=== PATIENT | female | born 1995 | race Caucasian/White ===

== ENCOUNTER 2017-01-03 10:14 | Emergency (ER) | payer BC ==
--- NOTE | 2017-01-03 10:34 | EDPHY ---
H & P Stated Complaint: cough, sore throat, weak legs Time Seen by Provider: 01/03/17 10:25 HPI/ROS: CHIEF COMPLAINT: Cough, myalgias HISTORY OF PRESENT ILLNESS: The patient presents to the ED with complaints of cough and myalgias for the past 6 days. The patient reports a 2 day history of fever an interval development of a severe cough and myalgias. The patient does complain of bilateral lower extremity leg weakness secondary to pain. The patient denies abdominal pain, nausea, vomiting or diarrhea. The patient reports she has a remote history of errlichiosis and mild Lyme disease. The patient denies any recent travel to the [facility]. She was camping the [facility] last week. The patient denies history of insect bite or tick bite recently. REVIEW OF SYSTEMS: A comprehensive 10 point review of systems is otherwise negative aside from elements mentioned in the history of present illness. 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 - Social History Smoking Status: Former smoker - Physical Exam Exam: General Appearance: Alert, no distress Eyes: Pupils equal and round no pallor or injection ENT, Mouth: Minimal pharyngeal erythema Respiratory: There are no retractions, lungs are clear to auscultation Cardiovascular: Regular rate and rhythm Gastrointestinal: Abdomen is soft and nontender, no masses, bowel sounds normal Neurological: A&O, normal motor function, normal sensory exam, normal cranial nerves Skin: Warm and dry, no rashes Musculoskeletal: Neck is supple nontender Extremities: symmetrical, full range of motion Constitutional: Initial Vital Signs Temperature (C) 37.0 C 01/03/17 10:18 Heart Rate 93 01/03/17 10:18 Respiratory Rate 18 01/03/17 10:18 Blood Pressure 120/84 H 01/03/17 10:18 O2 Sat (%) 95 01/03/17 10:18 O2 Delivery Mode Room Air Allergies/Adverse Reactions: No Known Allergies Allergy (Verified 01/03/17 10:17) Home Medications: Medication Instructions Recorded Bcp 05/30/15 AZITHROMYCIN [Z-PACK] 250 mg PO DAILY #1 packet 01/03/17 Albuterol [Ventolin Hfa Inhaler] 2 puffs IH QID PRN #1 mdi 01/03/17 Medical Decision Making ED Course/Re-evaluation: The patient presents to the ED with a one-week history of cough, myalgias and fever. The patient is well-appearing with stable vital signs. Given her complaints of leg pain and myalgias a CPK has been ordered. Patient has no clinical evidence of pneumonia. The patient's laboratory studies demonstrated a negative rapid flu test. The patient's CBC is within normal limits. The patient has no clinical evidence of rhabdomyolysis or significant metabolic abnormality. The patient will be treated with azithromycin and albuterol for asthmatic bronchitis. Differential Diagnosis: Differential diagnosis considered includes bronchitis, asthma, pneumonia, influenza, rhabdomyolysis - Data Points Laboratory Results: Laboratory Results 01/03/17 10:40 01/03/17 10:40 01/03/17 01/03/17 01/03/17 10:40 10:40 10:40 WBC 6.76 10^3/uL 10^3/uL (3.80-9.50) RBC 4.92 10^6/uL 10^6/uL (4.18-5.33) Hgb 15.3 g/dL g/dL (12.6-16.3) Hct 43.5 % % (38.0-47.0) MCV 88.4 fL fL (81.5-99.8) MCH 31.1 pg pg (27.9-34.1) MCHC 35.2 g/dL g/dL (32.4-36.7) RDW 11.9 % % (11.5-15.2) Plt Count 339 10^3/uL 10^3/uL (150-400) MPV 9.7 fL fL (8.7-11.7) Neut % (Auto) 64.6 % % (39.3-74.2) Lymph % (Auto) 23.8 % % (15.0-45.0) [place] % (Auto) 10.7 % % (4.5-13.0) Eos % (Auto) 0.0 % L % (0.6-7.6) Baso % (Auto) 0.6 % % (0.3-1.7) Nucleat RBC Rel Count 0.0 % % (0.0-0.2) Absolute Neuts (auto) 4.37 10^3/uL 10^3/uL (1.70-6.50) Absolute Lymphs (auto) 1.61 10^3/uL 10^3/uL (1.00-3.00) Absolute Monos (auto) 0.72 10^3/uL 10^3/uL (0.30-0.80) Absolute Eos (auto) 0.00 10^3/uL L 10^3/uL (0.03-0.40) Absolute Basos (auto) 0.04 10^3/uL 10^3/uL (0.02-0.10) Absolute Nucleated RBC 0.00 10^3/uL 10^3/uL (0-0.01) Immature Gran % 0.3 % % (0.0-1.1) Immature Gran # 0.02 10^3/uL 10^3/uL (0.00-0.10) Sodium 141 mEq/L mEq/L (134-144) Potassium 4.2 mEq/L mEq/L (3.5-5.2) Chloride 105 mEq/L mEq/L (97-110) Carbon Dioxide 22 mEq/l mEq/l (22-31) Anion Gap 14 mEq/L mEq/L (8-16) BUN 8 mg/dL mg/dL (7-23) Creatinine 0.8 mg/dL mg/dL (0.6-1.0) Estimated GFR > 60 Glucose 91 mg/dL mg/dL (70-100) Calcium 9.6 mg/dL mg/dL (8.5-10.4) Creatine Kinase 36 IU/L IU/L (0-156) Influenza Typ A,B (DFA) NEGATIVE FOR FLU (NEGATIVE) Departure - Departure Disposition: Home, Routine, Self-Care Clinical Impression: Bronchitis Condition: Good Instructions: Acute Bronchitis (ED) Additional Instructions: 1. Take antibiotic as directed for next 5 days. 2. Please use albuterol inhaler as needed for cough. 3. Please follow up with a physician you have been referred to for any unimproved symptoms. His name is Dr. Berman and his office number is [phone]. 4. Please return to the ED for markedly worsening symptoms or other concerns. Prescriptions: Albuterol [Ventolin Hfa Inhaler] 2 puffs IH QID PRN #1 mdi PRN Reason: for shortness of breath AZITHROMYCIN [Z-PACK] 250 mg PO DAILY #1 packet
[2017-01-03 10:51] LABS: % IMMATURE GRANULYOCYTES 0.3 % (0.0-1.1); ABSOLUTE IMMATURE GRANULOCYTES 0.02 10^3/uL (0.00-0.10); ADD DIFF? NO; ADD MORPH? NO; ADD SCAN? NO; ATYPICAL LYMPHOCYTE FLAG 40 (0-99); FRAGMENT RBC FLAG 0 (0-99); HEMATOCRIT 43.5 % (38.0-47.0); HEMOGLOBIN 15.3 g/dL (12.6-16.3); LEFT SHIFT FLG 0 (0-99); LIPEMIA HEMOLYSIS FLAG 90 (0-99); MEAN CELL HEMOGLOBIN 31.1 pg (27.9-34.1); MEAN CELL HEMOGLOBIN CONCENTR. 35.2 g/dL (32.4-36.7); MEAN CELL VOLUME 88.4 fL (81.5-99.8); MEAN PLATELET VOLUME 9.7 fL (8.7-11.7); PLATELET CLUMPS FLAG 0 (0-99); PLATELET COUNT 339 10^3/uL (150-400); RED BLOOD CELL COUNT 4.92 10^6/uL (4.18-5.33); RED CELL DISTRIBUTION WIDTH 11.9 % (11.5-15.2)
[2017-01-03 11:13] LABS: ANION GAP 14 mEq/L (8-16); CALCIUM 9.6 mg/dL (8.5-10.4); CARBON DIOXIDE 22 mEq/l (22-31); CHLORIDE 105 mEq/L (97-110); CREATININE 0.8 mg/dL (0.6-1.0); GLOMERULAR FILTRATION RATE > 60; GLUCOSE 91 mg/dL (70-100); POTASSIUM 4.2 mEq/L (3.5-5.2); SODIUM 141 mEq/L (134-144)
[2017-01-03 11:47] VITALS: BP 129/78; PULSE 80; RESP 14; TEMP 98.4; O2SAT 96
== END 2017-01-03 11:46 | disposition home or self-care (01) ==
DX: J20.9 Acute bronchitis, unspecified (principal); Z87.891 Personal history of nicotine dependence

== ENCOUNTER 2017-08-21 00:06 | Emergency (ER) | payer BC ==
--- NOTE | 2017-08-21 00:29 | EDPHY ---
H & P Smoking Status: Former smoker Time Seen by Provider: 08/21/17 00:10 HPI/ROS: CHIEF COMPLAINT: Suicidal ideation HISTORY OF PRESENT ILLNESS: 21-year-old female with a self-described history of multiple personality disorder arrives on M1 hold complaining suicidal ideation stating that 1 of her personalities, Amanda, is experiencing suicidal ideations. Her plan is to either lacerated her wrists or to drive her vehicle off of the road in [place]. Denies attempt. Denies hallucination. Denies complaints of physical pain or discomfort. PRIMARY CARE PROVIDER: REVIEW OF SYSTEMS: A ten point review of systems was performed and is negative with the exception of the items mentioned in the HPI PAST MEDICAL & SURGICAL HISTORY: Multiple personality disorder SOCIAL HISTORY: Denies alcohol or drug use PHYSICAL EXAM (Prior to examination, patient consented to physical exam, hands were washed and my usual and customary physical exam procedures followed) 1) GENERAL: Well-developed, well-nourished, alert and oriented. Appears to be in no acute distress. 2) HEAD: Normocephalic, atraumatic 3) HEENT: Pupils equal, round, reactive to light bilaterally. Sclera anicteric. 4) NECK: Full range of motion, no meningeal signs. 5) LUNGS: Clear auscultation bilaterally, no wheezes, no rhonchi, no retractions. 6) HEART: Regular rate and rhythm, no murmur, no heave, no gallop. 7) ABDOMEN: No guarding, no rebound, no focal tenderness, 8) MUSCULOSKELETAL: No peripheral edema or discoloration. 9) BACK: No visual or palpable abnormality. 10) SKIN: No rash, no petechiae. 11) Psychiatric: Patient is oriented X 3, there is no agitation. DIFFERENTIAL DIAGNOSIS: In no particular include but limited to depression, suicidal ideation, homicidal ideation (Janelle,Lisa Mckenzie) Constitutional: Initial Vital Signs Temperature (C) 36.9 C 08/21/17 00:39 Heart Rate 115 H 08/21/17 00:39 Respiratory Rate 20 08/21/17 00:39 Blood Pressure 133/89 H 08/21/17 00:39 O2 Sat (%) 94 08/21/17 00:39 O2 Delivery Mode Room Air Allergies/Adverse Reactions: No Known Allergies Allergy (Verified 08/21/17 00:37) Home Medications: Medication Instructions Recorded Adderall 10 mg Tablet 08/21/17 Effexor Xr 08/21/17 Xanax 08/21/17 MDM/Departure - MDM Medications Given: Venlafaxine HCl (Effexor Xr) 150 mg PO DAILY DONG Stop: 02/17/18 08:59 Last Admin: 08/21/17 00:52 Dose: 150 mg Discontinued Medications Alprazolam (Xanax) 2 mg PO EDNOW ONE Stop: 08/21/17 00:51 Last Admin: 08/21/17 00:51 Dose: 2 mg Alprazolam (Xanax) 1 mg PO EDNOW ONE Stop: 08/21/17 10:42 Last Admin: 08/21/17 10:45 Dose: 1 mg Lorazepam (Ativan) 1 mg PO EDNOW ONE Stop: 08/21/17 00:40 Last Admin: 08/21/17 00:50 Dose: 1 mg ED Course/Re-evaluation: 12:29 a.m. Care of patient under supervision of secondary supervising physician Dr Headley . 2:00 a.m.: Care turned over to Dr. Headley awaiting mental health evaluation ( Lisa Luis) 6:15 a.m.- Patient has remained stable during my shift. She is on an M1 hold for suicidal ideation, she was initially intoxicated though is now sober, she is awaiting mental health evaluation. I anticipate at 7:00 a.m. the case will be signed out to the oncoming provider Dr. Almonte (KayodeLesli) I took over care of this patient at 7:00 a.m.. This patient is on an M1 hold. The patient is here for multiple personality disorder. The patient is a [facility] client. The patient is awaiting evaluation at this time. 3:15 p.m., the patient has been evaluated by Behavioral Health. Waiting assessment and disposition. Care turned over to Dr. Jayson Wallace. ( Rodrick Almonte) [id number]: Patient has been evaluated by mental health [facility]. They have lifted her M1 hold. She denies want hurt herself or anybody else. She contracts for safety. I did go speak with her. She has no questions or concerns. She does understand return emergency room immediately if she develops any worsening symptoms questions or concerns. (Jayson Wallace) - Depart Disposition: Home, Routine, Self-Care Clinical Impression: Suicidal ideation Condition: Good Instructions: Borderline Personality Disorder (DC) Additional Instructions: 1. Return to the emergency room if there is any worsening symptoms questions or concerns. 2. If you feeling depressed or suicidal or want to hurt yourself or anybody else please immediately return emergency room. 3. Follow up with resources were given today. Referrals: NONE *PRIMARY CARE P,. [Primary Care Provider] - As per Instructions
[2017-08-21] MEDS ORDERED: LORazepam 1 MG TAB PO ONE (00:39)
[2017-08-21 00:41] VITALS: RESP 20
[2017-08-21 00:43] LABS: % IMMATURE GRANULYOCYTES 0.3 % (0.0-1.1); ABSOLUTE IMMATURE GRANULOCYTES 0.02 10^3/uL (0.00-0.10); ADD DIFF? NO; ADD MORPH? NO; ADD SCAN? NO; ATYPICAL LYMPHOCYTE FLAG 10 (0-99); FRAGMENT RBC FLAG 0 (0-99); HEMATOCRIT 42.8 % (38.0-47.0); HEMOGLOBIN 15.1 g/dL (12.6-16.3); LEFT SHIFT FLG 0 (0-99); LIPEMIA HEMOLYSIS FLAG 90 (0-99); MEAN CELL HEMOGLOBIN 31.3 pg (27.9-34.1); MEAN CELL HEMOGLOBIN CONCENTR. 35.3 g/dL (32.4-36.7); MEAN CELL VOLUME 88.8 fL (81.5-99.8); MEAN PLATELET VOLUME 9.5 fL (8.7-11.7); PLATELET CLUMPS FLAG 10 (0-99); PLATELET COUNT 358 10^3/uL (150-400); RED BLOOD CELL COUNT 4.82 10^6/uL (4.18-5.33); RED CELL DISTRIBUTION WIDTH 12.6 % (11.5-15.2)
[2017-08-21] MEDS ORDERED: ALPRAZolam 0.25 MG TAB PO ONE ×2 (00:50→10:41)
[2017-08-21 00:53] LABS: ANION GAP 21 mEq/L (8-16); CALCIUM 9.7 mg/dL (8.5-10.4); CARBON DIOXIDE 19 mEq/l (22-31); CHLORIDE 111 mEq/L (97-110); CREATININE 0.7 mg/dL (0.6-1.0); ETHANOL SERUM 171 mg/dL (0-10); GLOMERULAR FILTRATION RATE > 60; GLUCOSE 97 mg/dL (70-100); POTASSIUM 4.4 mEq/L (3.5-5.2); SALICYLATE < 1.0 mg/dL (2.0-20.0); SODIUM 151 mEq/L (134-144)
[2017-08-21] MEDS ORDERED: VENLAFAXINE XR 150 MG CAP PO SCH (09:00)
[2017-08-21 10:03] VITALS: TEMP 97.9; O2SAT 95
[2017-08-21 16:14] VITALS: BP 125/74; PULSE 95
== END 2017-08-21 16:20 | disposition home or self-care (01) ==
DX: R45.851 Suicidal ideations (principal); Z87.891 Personal history of nicotine dependence
CPT/HCPCS: 80305; G0480